=== PATIENT | female | born 1955 | race Two or more races ===

== ENCOUNTER → 2019-06-10 09:53 | Outpatient (CLI) | payer OTHER | END | disposition home or self-care (01) | LOC: LAB 09:53 | DX: D64.89 Other specified anemias (principal); R10.84 Generalized abdominal pain; E03.8 Other specified hypothyroidism; E78.49 Other hyperlipidemia; R55 Syncope and collapse; R80.8 Other proteinuria; I50.22 Chronic systolic (congestive) heart failure ==

== ENCOUNTER → 2019-06-10 | Outpatient (CLI) | payer OTHER | END | disposition home or self-care (01) | LOC: NUCLEAR 08:00 | DX: I11.9 Hypertensive heart disease without heart failure (principal) ==

== ENCOUNTER 2022-08-23 07:44 | Outpatient (CLI) | payer OTHER | END 2022-08-23 07:48 | disposition home or self-care (01) | LOC: RX STUDY 07:44 | PROVIDERS: ATTEND Surgery | DX: K57.32 Diverticulitis of large intestine without perforation or abscess without bleeding (principal); Z93.3 Colostomy status ==

== ENCOUNTER 2023-10-07 07:05 | Outpatient (CLI) | payer OTHER | END 2023-10-07 07:08 | disposition home or self-care (01) | LOC: SONOGRAMA 07:05 | DX: N18.30 Chronic kidney disease, stage 3 unspecified (principal); E11.21 Type 2 diabetes mellitus with diabetic nephropathy; R80.9 Proteinuria, unspecified ==

== ENCOUNTER 2025-06-09 08:18 | Outpatient (CLI) | payer OTHER | END 2025-06-09 08:33 | disposition home or self-care (01) | LOC: MAMO-SONO 08:18 | DX: C50.412 Malignant neoplasm of upper-outer quadrant of left female breast (principal); C50.612 Malignant neoplasm of axillary tail of left female breast ==